=== PATIENT | female | born 1940 | race Hispanic/Latino ===

== ENCOUNTER 2018-03-01 09:46 | Emergency (ER) | payer MEDICARE ==
[2018-03-01 10:12] LABS: APPEARANCE,URINE Clear (CLEAR); BILIRUBIN,URINE Negative (NEGATIVE); COLOR,URINE Yellow (YELLOW); GLUCOSE, URINE (UA) Negative (NEGATIVE); KETONES,URINE Negative (NEGATIVE); LEUKOCYTE ESTERASE ,URINE Small (NEGATIVE); NITRATE,URINE Negative (NEGATIVE); OCCULT BLOOD,URINE Negative (NEGATIVE); PROTEIN,URINE Negative (NEGATIVE); UROBILINOGEN,URINE 0.2 mg/dL (0.2-1.0)
[2018-03-01] MEDS ORDERED: MAG HYDROX/AL HYDROX/SIMETH ES 30 ML SUSP UDCUP ONE (10:15)
[2018-03-01] MEDS ORDERED: LIDOCAINE HCL 2% VISCOUS 15 ML UDCUP ONE (10:15)
[2018-03-01] MEDS ORDERED: FAMOTIDINE/PF 20 MG/2 ML VIAL IV ONE (10:15)
[2018-03-01 10:31] LABS: BASOPHILS % (AUTO) 1.3 % (0.0-5.0); EOSINOPHILS % (AUTO) 3.7 % (0.0-8.0); HEMATOCRIT 42.6 % (36-48); MEAN CORPUSCULAR HEMOGLOBIN 30.9 pg (27.0-33.0); MEAN CORPUSCULAR HGB CONC 35.1 g/dL (32.0-36.0); MEAN CORPUSCULAR VOLUME 88.1 fL (79-99); MONOCYTES % (AUTO) 7.2 % (3.0-13.0); NEUTROPHILS % (AUTO) 69.8 % (40.0-77.0); PLATELET COUNT (AUTO) 272 K/uL (130-400); RED BLOOD CELL COUNT(AUTO) 4.83 MIL/uL (4.00-5.50); RED CELL DISTRIBUTION WIDTH 13.7 % (11.0-15.5); WHITE BLOOD COUNT (AUTO) 5.3 K/uL (4.8-10.8)
[2018-03-01 10:37] LABS: BACTERIA,URINE Rare /HPF (None Seen); RBC,URINE 0-1 /HPF (0-1); SQUAMOUS EPITHELIAL CELL,UR Few /HPF (0-2); WBC,URINE 0-1 /HPF (0-1)
[2018-03-01 10:40] LABS: CREATININE 0.7 mg/dL (0.5-1.5); POTASSIUM 4.4 mmol/L (3.5-5.1)
[2018-03-01 10:45] LABS: ALBUMIN 4.2 g/dL (3.5-5.0); BILIRUBIN,TOTAL 0.5 mg/dL (0.2-1.0)
== END 2018-03-01 15:56 | disposition home or self-care (01) ==
LOC: EDH 09:46
DX: K29.70 Gastritis, unspecified, without bleeding (principal); B96.81 Helicobacter pylori [H. pylori] as the cause of diseases classified elsewhere; I10 Essential (primary) hypertension; Z88.1 Allergy status to other antibiotic agents; Z90.710 Acquired absence of both cervix and uterus; Z90.49 Acquired absence of other specified parts of digestive tract; Z98.890 Other specified postprocedural states
CPT/HCPCS: 36415; 80053; 81001; 82270; 83690; 85025; 86677; 96374; 99284; J3490

== ENCOUNTER 2025-04-25 14:42 | Emergency (ER) | payer OTHER, MEDICARE ==
[~2025-04-25] VITALS: Ht 160 cm; Wt 59.0 kg
[2025-04-25 15:08] VITALS: BP 149/68; PULSE 90; RESP 16; TEMP 98.1; O2SAT 98
[2025-04-25 15:14] LABS: BASOPHILS # (AUTO) 0.04 K/uL (0.00-0.20); BASOPHILS % (AUTO) 0.5 % (0.0-5.0); EOSINOPHILS # (AUTO) 0.21 K/uL (0.00-0.70); EOSINOPHILS % (AUTO) 2.8 % (0.0-8.0); HEMATOCRIT 43.8 % (36-48); IMMATURE GRANULOCYTE ABSOLUTE 0.03 K/uL (0-1); LYMPHOCYTES # (AUTO) 1.5 K/uL (1.0-4.8); LYMPHOCYTES % (AUTO) 19.6 % (21.0-51.0); MEAN CORPUSCULAR HEMOGLOBIN 30.1 pg (27.0-33.0); MEAN CORPUSCULAR HGB CONC 33.8 g/dL (32.0-36.0); MONOCYTES # (AUTO) 0.5 K/uL (0.1-1.0); MONOCYTES % (AUTO) 7.3 % (3.0-13.0); NEUTROPHILS # (AUTO) 5.1 K/uL (1.8-7.7); NEUTROPHILS % (AUTO) 69.4 % (40.0-77.0); PLATELET COUNT (AUTO) 275 K/uL (130-400); RED BLOOD CELL COUNT(AUTO) 4.92 MIL/uL (4.00-5.50); WHITE BLOOD COUNT (AUTO) 7.4 K/uL (4.8-10.8)
--- NOTE | 2025-04-25 15:29 | EKG ---
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
[2025-04-25] MEDS: ondanSETRON 4MG INJ IVP ONE (15:36)
[2025-04-25] MEDS: FAMOTIDINE 20MG VIAL IV ONE (15:36)
[2025-04-25 15:50] LABS: CREATININE 0.5 mg/dL (0.5-1.0); POTASSIUM 4.3 mmol/L (3.5-5.1)
[2025-04-25 15:54] LABS: ALBUMIN 3.8 g/dL (3.5-5.0); BILIRUBIN,TOTAL 0.7 mg/dL (0.2-1.0); TOTAL PROTEIN, SERUM 6.8 g/dL (6.0-8.3)
[2025-04-25 16:04] LABS: INR 1.06 (0.85-1.15); PROTHROMBIN TIME 11.2 SEC (9.6-11.6)
[2025-04-25 16:05] LABS: PARTIAL THROMBOPLASTIN TIME 27.5 SEC (26.3-35.5)
[2025-04-25] MEDS: MAG/ALUM/SIMETH 30 ML UDCUP PO ONE (16:10)
[2025-04-25] MEDS: morPHINE 2 MG SYG IVP ONE (16:12)
--- NOTE | 2025-04-25 16:20 | HMCIMG ---
EXAM: CR Chest, 1 View. CLINICAL HISTORY: Shortness of breath COMPARISON: None provided. FINDINGS: LUNGS: The lungs show no infiltrate or other acute finding. PLEURAL SPACES: No pleural effusion or pneumothorax. MEDIASTINUM: The cardiomediastinal silhouette is within normal limits. BONES: No acute osseous abnormality. IMPRESSION: No acute cardiopulmonary pathology is evident. /[place]
--- NOTE | 2025-04-25 17:17 | ERN ---
General Chief Complaint: Abdominal Pain Stated Complaint: ABD PAIN Time Seen by MD: 14:45 History of Present Illness Initial Comments 84 y/o female with past medical history of gastritis came in for epigastric pain and GERD like feeling. Pt denies nausea and vomiting associated with her symptoms. She states that all of this started after eating spicy food. Pt otherwise has no concerns. Allergies: Coded Allergies: No Known Drug Allergies (Unverified Allergy, Unknown, 04/25/25) Past Medical History Past Medical History: Diverticulitis, Diverticulosis, GERD, High Cholesterol, Hypertension Past Surgical History: Hysterectomy, Cholecystectomy ROS Dictation Epigastric pain Physical Exam General Appearance: (+) no apparent distress Ear, Nose, Throat: (+) hearing grossly normal Neck: (+) normal inspection, (+) supple Respiratory: (+) chest non-tender, (+) lungs clear Heart: (+) regular, (+) no gallop Vascular: (+) no edema, (+) normal peripheral pulse Gastrointestinal: (+) soft, (+) non-tender, (+) no organomegaly, (+) bowel sound present Results Laboratory and Microbiology Lab and Micro Result Laboratory Tests Test 04/25/25 15:07 04/25/25 15:31 04/25/25 15:47 White Blood Count 7.4 K/uL (4.8-10.8) Red Blood Count 4.92 MIL/uL (4.00-5.50) Hemoglobin 14.8 g/dL (12.0-16.0) Hematocrit 43.8 % (36-48) Mean Corpuscular Volume 89.0 fL (79-99) Mean Corpuscular Hemoglobin 30.1 pg (27.0-33.0) Mean Corpuscular Hemoglobin Concent 33.8 g/dL (32.0-36.0) Red Cell Distribution Width 14.0 % (11.0-15.5) Platelet Count 275 K/uL (130-400) Mean Platelet Volume 9.3 fL (7.5-10.5) Immature Granulocyte % (Auto) 0.4 % (0-1) Neutrophils (%) (Auto) 69.4 % (40.0-77.0) Lymphocytes (%) (Auto) 19.6 % (21.0-51.0) L Monocytes (%) (Auto) 7.3 % (3.0-13.0) Eosinophils (%) (Auto) 2.8 % (0.0-8.0) Basophils (%) (Auto) 0.5 % (0.0-5.0) Neutrophils # (Auto) 5.1 K/uL (1.8-7.7) Lymphocytes # (Auto) 1.5 K/uL (1.0-4.8) Monocytes # (Auto) 0.5 K/uL (0.1-1.0) Eosinophils # (Auto) 0.21 K/uL (0.00-0.70) Basophils # (Auto) 0.04 K/uL (0.00-0.20) Absolute Immature Granulocyte (auto 0.03 K/uL (0-1) Nucleated Red Blood Cells 0.0 % (0.0-0.19) Lactic Acid Level 1.1 mmol/L (0.8-2.5) Sodium Level 129 mmol/L (136-145) L Potassium Level 4.3 mmol/L (3.5-5.1) Chloride Level 92 mmol/L (101-111) L Carbon Dioxide Level 27 mmol/L (21-32) Blood Urea Nitrogen 11 mg/dL (7-18) Creatinine 0.5 mg/dL (0.5-1.0) Glomerular Filtration Rate Calc 91 mL/min (>90) Random Glucose 104 mg/dL (70-105) Total Calcium 8.9 mg/dL (8.5-10.1) Total Bilirubin 0.7 mg/dL (0.2-1.0) Aspartate Amino Transf (AST/SGOT) 30 U/L (10-37) Alanine Aminotransferase (ALT/SGPT) 25 U/L (12-78) Alkaline Phosphatase 130 U/L (50-136) Troponin I High Sensitivity 28 ng/L (4-50) Total Protein 6.8 g/dL (6.0-8.3) Albumin 3.8 g/dL (3.5-5.0) Lipase 23 U/L (16-77) Procalcitonin < 0.05 ng/mL (0.05-0.5) L Prothrombin Time 11.2 SEC (9.6-11.6) Prothromb Time International Ratio 1.06 (0.85-1.15) Activated Partial Thromboplast Time 27.5 SEC (26.3-35.5) MDM Pt is reevaluated and states that she no longer has epigastric discomfort. Pt will be discharge home to follow up with primary care physician. Pt agrees and understands with plan of care. ED Course Orders Procedure Category Date Status Time 12 Lead Ekg Tracing- EKG 04/25/25 Resulted Technical 14:46 Cbc With Differential LAB 04/25/25 Complete 14:46 Lactic Acid LAB 04/25/25 Complete 14:46 Pt And Ptt LAB 04/25/25 Complete 14:46 Urinalysis LAB 04/25/25 Logged W/Microscopic 14:46 Chest 1vw RAD 04/25/25 Resulted 14:46 Ondansetron 4mg Inj PHA 04/25/25 Complete (Zofran 4mg Inj) 15:00 Famotidine 20mg Vial PHA 04/25/25 Complete (Pepcid 20mg Vial) 15:00 Morphine 2mg Syg PHA 04/25/25 Complete (Morphine 2mg Syg) 15:00 Procalcitonin LAB 04/25/25 Complete 15:35 Troponin I High LAB 04/25/25 Complete Sensitivity 15:35 Comprehensive LAB 04/25/25 Complete Metabolic Panel 15:35 Lipase LAB 04/25/25 Complete 15:35 Mag/Alum/Simeth 30ml PHA 04/25/25 Complete (Maalox Plus 30ml) 16:00 Current Medications Medications (Trade) Dose Ordered Sig/Enrique Route PRN Reason Start Time Stop Time Status Last Admin Dose Admin Al Hydroxide/Mg Hydroxide (MAALox PLUS 30ML) 15 ml ONCE ONCE PO 04/25/25 16:00 04/25/25 16:01 DC 04/25/25 16:10 Famotidine (Pepcid 20mg Vial) 20 mg ONCE ONCE IV 04/25/25 15:00 04/25/25 15:01 DC 04/25/25 15:36 Morphine Sulfate (morPHINE 2MG SYG) 2 mg ONCE ONCE IVP 04/25/25 15:00 04/25/25 15:01 DC 04/25/25 16:12 Ondansetron HCl (zoFRAN 4MG INJ) 4 mg ONCE ONCE IVP 04/25/25 15:00 04/25/25 15:01 DC 04/25/25 15:36 Vital Signs Date Time Temp Pulse Resp B/P (MAP) Pulse Ox O2 Delivery O2 Flow Rate FiO2 04/25/25 15:08 98.1 90 16 149/68 98 Room Air* 0 21 04/25/25 14:45 98.1 90 18 165/78 98 Room Air 0 DX & DISP Disposition: Discharge Departure Impression: Primary Impression: Gastritis Condition: Stable Referrals: RONEY RODRIGUEZ MD (PCP) JUNITO PAIZ MD Apr 25, 2025 17:17
[2025-04-25] MEDS ORDERED: FAMO10TA39 PO (17:39)
== END 2025-04-25 17:53 | disposition home or self-care (01) ==
LOC: EDH 14:42
DX: K29.70 Gastritis, unspecified, without bleeding (principal); E78.00 Pure hypercholesterolemia, unspecified; I10 Essential (primary) hypertension; Z90.49 Acquired absence of other specified parts of digestive tract; Z90.710 Acquired absence of both cervix and uterus
CPT/HCPCS: 99285; 96374; 96375; 71045; 84484; 80053; 83690; 85025; 85610; 85730; 83605; 36415; 93005; 84145; J3490; J2270; J2405

== ENCOUNTER 2025-06-29 08:41 | Observation (INO) | payer OTHER, MEDICARE ==
[~2025-06-29] VITALS: Ht 152.4 cm; Wt 54.4 kg
[~2025-06-29 08:41] MED LIST: FAMO10TA39 PO
[2025-06-29] MEDS: LACTATED RINGERS 1000ML IV STA (10:01)
--- NOTE | 2025-06-29 10:20 | EKG ---
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
--- NOTE | 2025-06-29 10:25 | ERN ---
General Chief Complaint: Dizzy/Light Headed Stated Complaint: DIZZY Time Seen by MD: 08:44 Source: patient History of Present Illness Initial Comments 84-year-old female with a past medical history of hypertension and hypercholesterolemia as well as GERD. She woke up this morning and felt lightheaded and a feeling of blackness that went down her throat to her stomach and then back up again. She has not had that symptom since this morning but comes in for evaluation. I noted that she is tachycardic and possibly hypovolemic based on her left radial pulse. Patient has no other complaints. Allergies: Coded Allergies: No Known Drug Allergies (Unverified Allergy, Unknown, 04/25/25) Home Meds Active Scripts Famotidine (Pepcid AC) 10 Mg Tablet, 1 TAB PO DAILY for 5 Days, #5 TAB 0 Refills Prov:JUNITO PAIZ MD 04/25/25 Past Medical History Past Medical History: GERD, High Cholesterol, Hypertension Past Surgical History: Cholecystectomy, Other Surgical History Other: hernia sx Constitutional: (-) chills, (-) diaphoresis, (-) fever, (-) malaise, (-) weakness, (-) other documentation EENTM: (-) eye pain, (-) blurred vision, (-) tearing, (-) double vision, (-) ear pain, (-) ear discharge, (-) nose pain, (-) nose congestion, (-) throat pain, (-) Throat swelling, (-) mouth pain, (-) tooth pain, (-) mouth swelling, (-) other documentation Respiratory: (-) cough, (-) orthopnea, (-) short of breath, (-) stridor, (-) wheezing, (-) other documentation Cardiovascular: (-) chest pain, (-) edema, (-) palpitations, (-) syncope, (-) dyspnea on exertion, (-) other documentation Gastrointestinal/Abdominal: (-) nausea, (-) vomiting, (-) diarrhea, (-) abdominal pain, (-) abdominal distention, (-) constipation, (-) rectal bleeding, (-) dark stool/melena, (-) other documentation Genitourinary: (-) vaginal discharge, (-) vaginal bleeding, (-) dysuria, (-) frequency, (-) hematuria, (-) pain, (-) other documentation Musculoskeletal: (-) Neck pain, (-) back pain, (-) Flank Pain, (-) joint pain, (-) joint swelling, (-) muscle pain, (-) muscle stiffness, (-) gout, (-) other documentation Physical Exam General Appearance: (+) no apparent distress Orientation: (+) alert, (+) oriented x 3 Head/Face Trauma: No Eye: bilateral eye normal inspection, bilateral eye PERRL, bilateral eye EOMI Ear, Nose, Throat: (+) hearing grossly normal, (+) normal ENT inspection, (+) moist mucous membraine Neck: (+) normal inspection, (+) supple, (+) full range of motion, (+) no JVD Respiratory: (+) chest non-tender, (+) lungs clear, (+) well ventilated Heart: (+) regular, (+) no gallop Vascular: (+) no edema, (+) normal peripheral pulse Gastrointestinal: (+) soft, (+) non-tender, (+) bowel sound present Results Laboratory and Microbiology Lab and Micro Result Laboratory Tests Test 06/29/25 10:20 White Blood Count 5.2 K/uL (4.8-10.8) Red Blood Count 5.29 MIL/uL (4.00-5.50) Hemoglobin 16.3 g/dL (12.0-16.0) H Hematocrit 47.5 % (36-48) Mean Corpuscular Volume 89.8 fL (79-99) Mean Corpuscular Hemoglobin 30.8 pg (27.0-33.0) Mean Corpuscular Hemoglobin Concent 34.3 g/dL (32.0-36.0) Red Cell Distribution Width 13.3 % (11.0-15.5) Platelet Count 225 K/uL (130-400) Mean Platelet Volume 9.5 fL (7.5-10.5) Immature Granulocyte % (Auto) 0.2 % (0-1) Neutrophils (%) (Auto) 70.1 % (40.0-77.0) Lymphocytes (%) (Auto) 17.3 % (21.0-51.0) L Monocytes (%) (Auto) 9.1 % (3.0-13.0) Eosinophils (%) (Auto) 2.1 % (0.0-8.0) Basophils (%) (Auto) 1.2 % (0.0-5.0) Neutrophils # (Auto) 3.6 K/uL (1.8-7.7) Lymphocytes # (Auto) 0.9 K/uL (1.0-4.8) L Monocytes # (Auto) 0.5 K/uL (0.1-1.0) Eosinophils # (Auto) 0.11 K/uL (0.00-0.70) Basophils # (Auto) 0.06 K/uL (0.00-0.20) Absolute Immature Granulocyte (auto 0.01 K/uL (0-1) Nucleated Red Blood Cells 0.0 % (0.0-0.19) Urine Color LIGHT-YELLOW (YELLOW) Urine Appearance CLEAR (CLEAR) Urine pH 7.0 (5.0-8.0) Urine Specific [place] 1.012 (1.001-1.031) Urine Protein NEGATIVE mg/dL (NEGATIVE) Urine Glucose (UA) NEGATIVE mg/dL (NEGATIVE) Urine Ketones NEGATIVE mg/dL (NEGATIVE) Urine Occult Blood NEGATIVE (NEGATIVE) Urine Nitrate NEGATIVE (NEGATIVE) Urine Bilirubin NEGATIVE mg/dL (NEGATIVE) Urine Urobilinogen 0.2 mg/dL (0.2-1.0) Urine Leukocyte Esterase NEGATIVE [place]/uL Sodium Level 127 mmol/L (136-145) L Potassium Level 3.6 mmol/L (3.5-5.1) Chloride Level 92 mmol/L (101-111) L Carbon Dioxide Level 29 mmol/L (21-32) Blood Urea Nitrogen 14 mg/dL (7-18) Creatinine 0.4 mg/dL (0.5-1.0) L Glomerular Filtration Rate Calc 96 mL/min (>90) Random Glucose 116 mg/dL (70-105) H Total Calcium 8.5 mg/dL (8.5-10.1) B-Type Natriuretic Peptide 101 pg/mL (0-100) H Procalcitonin < 0.05 ng/mL (0.05-0.5) L Influenza Type A Antigen Negative For Type A Influenza Type B Antigen Negative For Type B Group A Streptococcus Rapid negative (NEGATIVE) MDM MDM: Differential diagnosis: Dehydration. Very unusual TIA symptom, hypovolemia, GERD, UTI Rationale: Tests considered and ordered secondary to shared decision making include: Previous outside records reviewed: Old ER visits. Risk of complication and/or morbidity or mortality of patient management: None Medications-Per medication reconciliation Need for hospitalization: Patient does meet criteria for hospitalization. Need for emergency major/minor surgery: No There are no social concerns with this patient. Prescription drug management Prescriptions will include symptomatic care Patient's prior external medical records from other ER visits were reviewed by me as indicated. Prior testing and results from previous visits were reviewed. Prior tests were taken into account with medical decision making and resource utilization, independent historian/historians were used to obtain complete medical history. I independently interpreted the test that were performed, results were reviewed by me and considered findings on radiology if ordered. Patient is hemoconcentrated, has orthostatic hypotension, hyponatremia, hypoch loremia and hypertension. I have called the hospitalist to admit her for electrolyte replacement fluid replacement as well as better blood pressure control. ED Course Orders Procedure Category Date Status Time 12 Lead Ekg Tracing- EKG 06/29/25 Complete Technical 10:01 B-Type Natriuretic LAB 06/29/25 Complete Peptide 10:01 Basic Metabolic Panel LAB 06/29/25 Complete 10:01 Cbc With Differential LAB 06/29/25 Complete 10:01 Covid19 (Sars Antigen LAB 06/29/25 In Process Rapid) 10:01 Influenza Type A & B, LAB 06/29/25 In Process Rapid 10:01 Procalcitonin LAB 06/29/25 Complete 10:01 Rapid (Group A Strep) LAB 06/29/25 In Process 10:01 Urinalysis Profile LAB 06/29/25 Complete 10:01 Chest 1vw RAD 06/29/25 Taken 10:01 Lactated Ringers PHA 06/29/25 Complete 1000ml (Lactated 10:01 Orthostatic Vital CPOE 06/29/25 Transmitted Signs 10:25 Current Medications Medications (Trade) Dose Ordered Sig/Enrique Route PRN Reason Start Time Stop Time Status Last Admin Dose Admin Lactated Ringer's (Lactated Ringers 1000ml) 1,000 ml BOLUS STAT IV 06/29/25 10:01 06/29/25 10:04 DC Vital Signs Date Time Temp Pulse Resp B/P (MAP) Pulse Ox O2 Delivery O2 Flow Rate FiO2 06/29/25 10:55 91 20 159/85 97 Room Air* 0 21 06/29/25 09:34 98.2 115 20 144/74 97 Room Air* 0 06/29/25 08:45 97.2 98 16 161/67 98 Room Air* 0 06/29/25 08:42 97.2 98 16 161/67 98 Room Air 0 DX & DISP Disposition: Inpatient Departure Impression: Primary Impression: Dehydration Additional Impressions: Hyponatremia, Hypochloremia, Hypertension Condition: Stable Referrals: TRICIA JC MD (PCP) KRISTIN PATEL MD Jun 29, 2025 10:25
[2025-06-29 10:35] LABS: IMMATURE GRANULOCYTE ABSOLUTE 0.01 K/uL (0-1); NUCLEATED RED BLOOD CELLS 0.0 % (0.0-0.19); PLATELET COUNT (AUTO) 225 K/uL (130-400); RED BLOOD CELL COUNT(AUTO) 5.29 MIL/uL (4.00-5.50); RED CELL DISTRIBUTION WIDTH 13.3 % (11.0-15.5); WHITE BLOOD COUNT (AUTO) 5.2 K/uL (4.8-10.8)
[2025-06-29 10:39] LABS: APPEARANCE,URINE CLEAR (CLEAR); GLUCOSE, URINE (UA) NEGATIVE (NEGATIVE); LEUKOCYTE ESTERASE ,URINE NEGATIVE Leu/uL (NEGATIVE); NITRATE,URINE NEGATIVE (NEGATIVE); OCCULT BLOOD,URINE NEGATIVE (NEGATIVE)
[2025-06-29 10:43] LABS: RAPID GROUP A STREP negative (NEGATIVE)
[2025-06-29 10:46] LABS: CREATININE 0.4 mg/dL (0.5-1.0); GLOMERULAR FILTR. RATE CALC 96.0 mL/min (>90); GLUCOSE,RANDOM 116.0 mg/dL (70-105); SODIUM SERUM 127.0 mmol/L (136-145); UREA NITROGEN, BLOOD 14.0 mg/dL (7-18)
[2025-06-29 10:47] LABS: ADD UA MICROSCOPIC NO
[2025-06-29 10:56] LABS: INFLUENZA TYPE A Negative For Type A (NEGATIVE); INFLUENZA TYPE B Negative For Type B (NEGATIVE)
[2025-06-29 11:32] LABS: COVID19 (SARS ANTIGEN RAPID) POSITIVE FOR SARS AG (NEGATIVE)
--- NOTE | 2025-06-29 11:53 | HMCIMG ---
EXAM: CR Chest, 1 View. CLINICAL HISTORY: sob COMPARISON: 04/25 15:45 EDT CR - CHEST 1VW FINDINGS: Stable. LUNGS: There is no mass, infiltrate, or acute pulmonary abnormality. PLEURAL SPACES: No pleural effusion or pneumothorax. MEDIASTINUM: The cardiomediastinal silhouette is within normal limits. BONES: No acute osseous abnormality. IMPRESSION: No acute cardiopulmonary pathology is evident. /[place]
[2025-06-29] MEDS: 0.9%NACL 1000ML 1,000 ML IV ONE (13:13)
--- NOTE | 2025-06-29 13:14 | HP ---
[facility] HISTORY & PHYSICAL Date Patient Seen: Jun 29, 2025 Time of Visit: 13:01 Supervising Physician: Dr Patel Primary Care Physician: [ ] Outpatient Specialists: [ ] Inpatient Consults: [ ] PROBLEM LIST: Syncope Hyponatremia Dehydration Covid pos HTN HLD GERD HPI: 84 y/o female with past medical history of Diverticulitis, Diverticulosis, GERD, High Cholesterol, Hypertension presenting to the ED reporting feeling lightheaded this morning and a feeling of blackness that went down her throat to her stomach and then back up again. She has not had that symptom since this morning but comes in for evaluation. Patient reports no fall, no CP or SOB. Den ies a RAMIRES, Dizziness or orther complaints. Patient with a HR in the 110s. EKG - no st changes. CXR - clear,good O2 sats. Na- 124, remaining labs grossly normal. Patient recieving fluids. Discussion with patient, will admit for observation. Tele. NA correction. Patient a Full Code. PAST MEDICAL HX: see above PAST SURGICAL HX: noncontributory SOCIAL HISTORY: No tobacco, ETOH, or illicit drug use Coded Allergies: No Known Drug Allergies (Unverified Allergy, Unknown, 04/25/25) REVIEW OF SYSTEMS: 12 point ROS reviewed with patient. Pertinent positives mentioned above. Otherwise negative. PHYSICAL EXAM: GENERAL: alert, weak, awake oriented x 3 HEENT: EOMI, Sclera non icteric, moist mucosa NECK: Supple, no JVD, trachea midline LUNGS: Clear breath sounds bilaterally. No wheezes HEART: Regular rate and rhythm. Normal S1 and S2, without murmurs ABD: Abdomen soft, nontender. Bowel sounds present EXT: No clubbing cyanosis or edema NEURO: Alert and oriented to person, follows commands Vital Signs (last 8hr) Date Time Temp Pulse Resp B/P (MAP) Pulse Ox O2 Delivery O2 Flow Rate FiO2 06/29/25 10:55 91 20 159/85 97 Room Air* 0 06/29/25 09:34 98.2 115 20 144/74 97 Room Air* 0 06/29/25 08:45 97.2 98 16 161/67 98 Room Air* 0 06/29/25 08:42 97.2 98 16 161/67 98 Room Air 0 LABS: Hematology Labs: Test 06/29/25 10:20 Range/Units White Blood Count 5.2 4.8-10.8 K/uL Red Blood Count 5.29 4.00-5.50 MIL/uL Hemoglobin 16.3 H 12.0-16.0 g/dL Hematocrit 47.5 36-48 % Mean Corpuscular Volume 89.8 79-99 fL Mean Corpuscular Hemoglobin 30.8 27.0-33.0 pg Mean Corpuscular Hemoglobin Concent 34.3 32.0-36.0 g/dL Red Cell Distribution Width 13.3 11.0-15.5 % Platelet Count 225 130-400 K/uL Mean Platelet Volume 9.5 7.5-10.5 fL Immature Granulocyte % (Auto) 0.2 0-1 % Neutrophils (%) (Auto) 70.1 40.0-77.0 % Lymphocytes (%) (Auto) 17.3 L 21.0-51.0 % Monocytes (%) (Auto) 9.1 3.0-13.0 % Eosinophils (%) (Auto) 2.1 0.0-8.0 % Basophils (%) (Auto) 1.2 0.0-5.0 % Neutrophils # (Auto) 3.6 1.8-7.7 K/uL Lymphocytes # (Auto) 0.9 L 1.0-4.8 K/uL Monocytes # (Auto) 0.5 0.1-1.0 K/uL Eosinophils # (Auto) 0.11 0.00-0.70 K/uL Basophils # (Auto) 0.06 0.00-0.20 K/uL Absolute Immature Granulocyte (auto 0.01 0-1 K/uL Nucleated Red Blood Cells 0.0 0.0-0.19 % Chemistry Labs: Test 06/29/25 10:20 Range/Units Sodium Level 127 L 136-145 mmol/L Potassium Level 3.6 3.5-5.1 mmol/L Chloride Level 92 L 101-111 mmol/L Carbon Dioxide Level 29 21-32 mmol/L Blood Urea Nitrogen 14 7-18 mg/dL Creatinine 0.4 L 0.5-1.0 mg/dL Glomerular Filtration Rate Calc 96 >90 mL/min Random Glucose 116 H 70-105 mg/dL Total Calcium 8.5 8.5-10.1 mg/dL B-Type Natriuretic Peptide 101 H 0-100 pg/mL Procalcitonin < 0.05 L 0.05-0.5 ng/mL DIAGNOSTICS / RADIOLOGY RESULTS: [ ] PLAN Admit to PCCU Tele Follow Na levels. Pending home meds for rec NEURO: Minimize central acting medications as possible. Maintain fall precautions, adequate lighting during the day PULMONARY: Supplemental 02 as needed. Maintain aspiration precautions at all times CARDIOVASCULAR: Follow hemodynamics. Vital signs per facility protocol GI & NUTRITION: Continue with nutritional support. Continue stool softeners and laxatives as needed. KIDNEYS & ELECTROLYTES: Strict monitoring of intake, output and overall fluid balance. Avoid nephrotoxic medications to the extent possible. Medications to be dosed according to renal function. Monitor electrolytes and replace as needed ENDOCRINE: Maintain blood glucose between 100-180 at all times. Hypoglycemia protocol in place INFECTIOUS DISEASE: Trend temperature, WBC and procalcitonin level Follow cultures, deescalate antibiotics as soon as possible. Panculture if new onset fever ONCOLOGY/HEMATOLOGY/COAGULATION: Monitor for s/s of bleeding Monitor hemoglobin, coagulation studies as needed SKIN: Pressure ulcer prevention per facility protocol Specialty mattress ORTHO/REHAB: Continue PT/OT Prophylaxis: Continue GI and DVT prophylaxis Code Status: Full Resuscitation Disposition: TBD Other: Total patient care time 52 minutes excluding all procedures. ANTONIA LUNDBERG Jun 29, 2025 13:13
[2025-06-29] MEDS ORDERED: LOPERAMIDE HCL 2 MG CAP PO PRN (13:30)
[2025-06-29] MEDS ORDERED: guaiFENesin-DM 200/20MG 10ML PO PRN (13:30)
[2025-06-29] MEDS ORDERED: ARTIFICAL TEARS SOL 15 ML OP PRN (13:30)
[2025-06-29] MEDS ORDERED: LACTULOSE 20 GM/30 ML UDCUP PO PRN (13:30)
[2025-06-29] MEDS ORDERED: BENZOCAINE/MENTH/CETYLPYRD CL 1 EACH LOZENGE MM PRN (13:30)
[2025-06-29] MEDS ORDERED: NITROGLYCERIN 0.4 MG SL TAB SL PRN (13:30)
[2025-06-29 14:08] VITALS: PULSE 98; RESP 18; O2SAT 100
[2025-06-29] MEDS: ALBUTEROL 0.083% 2.5 MG/3 ML INH IH PRN (14:09)
--- NOTE | 2025-06-29 15:55 | NUR ---
DCP:HOME Pt currently lives alone in her home. Pt states that she does not have any DME, home health, or provider services. Pt states that she is able to complete ADLs independently. PCP is Dr. Cory Rivas and uses [facility] for any RX needs. At [place] pt will want to go home and family can assist with transportation. Addendum: 06/29/25 at 1557 by LASHAE OROZCO SS Amended: Links added.
[2025-06-29 18:40] VITALS: PULSE 91; RESP 20; O2SAT 97
[2025-06-29 18:41] VITALS: PULSE 91; RESP 20
[2025-06-29 20:00] VITALS: BP 134/68; PULSE 83; RESP 16; TEMP 98.7
[2025-06-29] MEDS: FAMOTIDINE 20MG TAB PO SCH (22:15)
[2025-06-29 22:54] VITALS: PULSE 63; RESP 18
[2025-06-30] VITALS: BP 102/47; PULSE 78; RESP 15; TEMP 97.9
[2025-06-30 07:07] VITALS: PULSE 77; RESP 18
[2025-06-30 07:08] VITALS: PULSE 79; RESP 18; O2SAT 99
[2025-06-30 08:05] LABS: ASPARTATE AMINOTRANSFERASE 26.0 U/L (10-37); CREATININE 0.4 mg/dL (0.5-1.0); GLOMERULAR FILTR. RATE CALC 96.0 mL/min (>90); GLUCOSE,RANDOM 94.0 mg/dL (70-105); SODIUM SERUM 136.0 mmol/L (136-145); TOTAL PROTEIN, SERUM 6.4 g/dL (6.0-8.3); UREA NITROGEN, BLOOD 13.0 mg/dL (7-18)
[2025-06-30 09:10] VITALS: BP 127/61; TEMP 98.3; O2SAT 98
--- NOTE | 2025-06-30 09:53 | DS ---
[facility] DISCHARGE SUMMARY Date Patient Seen: Jun 30, 2025 Time of Visit: 19:58 Supervising Physician: Dr. Patel Primary Care Physician:Dr Rivas Outpatient Specialists: [ ] Inpatient Consults: [ ] PROBLEM LIST: HOSPITAL COURSE: HPI (per admitting provider) 84-year-old female with past medical history of hypertension, hyperlipidemia, GERD, who presented to ED via private vehicle with complaint of worsening generalized body weakness and found to have positive with COVID, and hyponatremic. Apparently patient was recently discharged earlier today following diagnosis of COVID, when she got home she felt worse now with palpitation. She then decided to come to ED for further medical evaluation. In ED she was found to have elevated heart rate above 110, hypertensive, afebrile, with slight tachypnea. Chest x-ray that was done yesterday showed no acute infiltrates, CBC unrevealing for any acute infection, however her CMP is significant for sodium level of 133. In ED she was then initiated on IV fluids. Patient was seen and examined in ED with no relatives present at bedside. At present patient is currently hemodynamically stable, not in acute respiratory distress, GCS 15, and denies any complaint. Patient denies any smoking, alcohol intake, or illicit drug use. Patient lives alone. The patient was treated for the following problems: Patient was evaluated by general body weakness and fatigue on this admission, she was found to be COVID positive no other acute findings. Patient was kept overnight for observation provided fluids and symptomatically. Upon discharge patient is expressing wishes to go home, she has not been hypoxic on this admission and if there was not required dexamethasone patient advised we will send prescription for outpatient Paxlovid, patient declined stated that she would be willing to a piece and P. cleared for discharge at this time and given recommendations as far as emergencies that would indicate a need to returned to the emergency department, she expressed understanding ACTIVE PROBLEM LIST FOR THE HOSPITALIZATION: Generalized body weakness, POA Sinus tachycardia, POA COVID positive, POA CHRONIC PROBLEMS: continue previous management per PCP unless otherwise indicated Hypertension, POA Hyperlipidemia, POA Hyponatremia, likely from poor p.o. 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 PCP notified of patients admission, hospital course and discharge. PHYSICAL EXAM: GENERAL: alert, weak, awake oriented x 3 HEENT: EOMI, Sclera non icteric, moist mucosa NECK: Supple, no JVD, trachea midline LUNGS: Clear breath sounds bilaterally. No wheezes HEART: Regular rate and rhythm. Normal S1 and S2, without murmurs ABD: Abdomen soft, nontender. Bowel sounds present EXT: No clubbing cyanosis or edema NEURO: Alert and oriented to person, follows commands FOLLOW-UP: Follow-up with PCP in 2-3 days RECOMMENDATIONS: See Discharge Instructions This case was seen and discussed with my supervising physician. More than 30 minutes spent on discharge process, including evaluation of the patient, discussion with nursing staff, medication reconciliation and follow-up appointments PABLO VELASQUEZ Jun 30, 2025 09:52
--- NOTE | 2025-06-30 10:32 | NUR ---
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 I INFOMED HER I WOULD CALL [facility] FOR DISCHARGE ORDER, SPOKE TO PABLO BEDOLLA, INFORMED HIM PT IS ANXIOUS TO LEAVE WAS TOLD BY [employer]AP SHE WOULD BE D/C THIS MORNING. PT IS STABLE AND READY.
--- NOTE | 2025-06-30 10:35 | NUR ---
IV REMOVED PT AAOX4 STABLE NO C/O PAIN, PT GIVEN INSTRUCTION FOR HOME, PT STATES SHE DROVE HERSELF HERE WILL DRIVE HOME.
[2025-06-30 14:00] VITALS: PULSE 80; RESP 20; O2SAT 97
== END 2025-06-30 10:53 | disposition home or self-care (01) ==
LOC: EDH 08:41 → EDHIP 13:27
PROVIDERS: ADMIT Internal Medicine Critical Care Medicine; ATTEND Internal Medicine Critical Care Medicine
DX: U07.1 COVID-19 (principal); E86.0 Dehydration; E78.00 Pure hypercholesterolemia, unspecified; E87.1 Hypo-osmolality and hyponatremia; K21.9 Gastro-esophageal reflux disease without esophagitis; I10 Essential (primary) hypertension; R53.1 Weakness; R00.0 Tachycardia, unspecified; E78.5 Hyperlipidemia, unspecified; Z98.890 Other specified postprocedural states; Z79.899 Other long term (current) drug therapy
CPT/HCPCS: 96360; 96361; 99285; 80048; 83880; 85025; 87880; 87804 ×2; 87426; 81003; 36415 ×2; 71045; 93005; 84145; 80053; 94640; G0378 ×21